=== PATIENT | female | born 1930 | race Caucasian/White ===

== ENCOUNTER 2017-05-04 14:57 | Emergency (ER) | payer MEDICARE, BC ==
[2017-05-04] MEDS ORDERED: Sodium Chloride 0.9% 10 ML Syringe FLUSH PRN (15:21)
[2017-05-04] MEDS ORDERED: Sodium Chloride 0.9% 2.5 ML Syringe FLUSH PRN (15:21)
--- NOTE | 2017-05-04 15:27 | EDM.PDOC ---
ED HPI GENERAL MEDICAL PROBLEM - General Chief Complaint: Chest Pain Stated Complaint: PAIN IN RIBS UNDER BREAST Time Seen by Provider: 05/04/17 15:22 Source of Information: Reports: Patient History Limitations: Reports: No Limitations - History of Present Illness INITIAL COMMENTS - FREE TEXT/NARRATIVE: HISTORY AND PHYSICAL: []86-year-old female presenting with "rib pain" History of Present Illness: []Patient states pain is coming gone for the last 2 weeks generally is there when she lays down. Denies any injury occurring History of appendectomy, coronary artery stent placement, hypertension Review of systems: As per history of present illness and below otherwise all systems reviewed and negative. Past medical history: As per history of present illness and as reviewed below otherwise noncontributory. Surgical history: As per history of present illness and as reviewed below otherwise noncontributory. Social history: No reported history of drug or alcohol abuse. Family history: As per history of present illness and as reviewed below otherwise noncontributory. Physical exam: Alert and oriented female, answering questions in full sentences without shortness of breath. Nontoxic in appearance HEENT: Atraumatic, normocehpalic, pupils reactive, negative for conjunctival pallor or scleral icterus, mucous membranes moist, throat clear, neck supple, nontender, trachea midline. Lungs: Clear to auscultation, breath sounds equal bilaterally, chest non tender. Heart: S1S2, regular, negative for clicks, rubs, or JVD. EKG Abdomen: Soft, nondistended, tender to mid epigastric rebound and no guarding. Negative for masses or hepatossplenmegaly. Negative for costovertebral tenderness. Pelvis: Stable nontender. Genitourinary: Deferred. Rectal: Deferred Extremities: Atraumatic, negative for cords or calf pain. Neurovascular unremarkable. Neuro: Awake, alert, oriented. Cranial nerves II through XII unremarkable. Cerebellum unremarkable. Motor and sensory unremarkable throughout. Exam nonfocal. Discussed test results with the patient and her daughter. Patient's pain has resolved since she obtained a GI cocktail. Diagnostics: [EKG chest x-ray CBC CMP troponin] Therapeutics: [Cocktail] Impression: []Epigastric pain Plan: [Discharged home Nexium 20 mg daily] Gaviscon 4 times a day as needed for the epigastric pain Follow-up with your primary care provider There was a small nodule that was calcified on your left lower lung this needs to be followed up on with your primary care provider Definitive disposition and diagnosis as appropriate pending reevaluation and review of above. Left ribs Pain Score (Numeric/FACES): 5 - Related Data Allergies Allergy/AdvReac Type Severity Reaction Status Date / Time Sulfa (Sulfonamide Allergy Redness Verified 05/04/17 15:11 Antibiotics) Home Meds: Home Meds Clopidogrel [Plavix] 1 tab PO DAILY 07/22/14 [History] Folic Acid 1 mg PO DAILY 07/22/14 [History] Rosuvastatin Calcium [Crestor] 40 mg PO DAILY 07/22/14 [History] Sertraline HCl [Zoloft] 100 mg PO DAILY 07/22/14 [History] amLODIPine [Norvasc] 2.5 mg PO BEDTIME 07/22/14 [History] Triamterene/Hydrochlorothiazid [Triamterene-HCTZ 75-50 MG] 1 tab PO DAILY [History] Lutein/Minerals/Vit A,C & E [Ocuvite] 1 tab PO DAILY 01/03/15 [History] Aspirin 81 mg PO DAILY 05/04/17 [History] Brimonidine [Alphagan 0.2% Ophth Soln] 05/04/17 [History] Ca Carbonate/Vitamin D3/Vit K [Citracal Soft Chew] 05/04/17 [History] Cholecalciferol (Vitamin D3) [Vitamin D] 05/04/17 [History] Esomeprazole Magnesium [Nexium] 20 mg PO DAILY #20 capsule. 05/04/17 [Rx] Jhonny Red 05/04/17 [History] Multivit-Min/FA/Lycopene/Lut [Centrum Silver Tablet] 1 tab PO DAILY 05/04/17 [ History] Past Medical History Other HEENT History: Difficulty hearing, Bilateral ptosis Cardiovascular History: Reports: High Cholesterol, Hypertension Other Respiratory History: 20 yr history smoking, "Quit many years ago" Genitourinary History: Reports: Urinary Incontinence [employer] History: Reports: Other Musculoskeletal History: Hx: reduction Right wrist fracture Other Dermatologic History: Excision basal cell cancer to neck, Current like sun rash to neck. cancer spot removed from forhead - Past Surgical History Other Cardiovascular Surgeries/Procedures: Stent placed Left Leg, Dr Vargas - [facility] Surgical History: Reports: Appendectomy Social & Family History - Family History Neurological: Reports: CVA - Tobacco Use Smoking Status *Q: Never Smoker Years of Tobacco use: 20 Used Tobacco, but Quit: Yes - Caffeine Use Caffeine Use: Reports: Coffee - Alcohol Use Days Per Week of Alcohol Use: 0 Number of Drinks Per Day: 0 Total Drinks Per Week: 0 - Recreational Drug Use Recreational Drug Use: No Drug Use in Last 12 Months: No ED ROS GENERAL - Review of Systems Review Of Systems: ROS reveals no pertinent complaints other than HPI. ED EXAM, GENERAL - Physical Exam Exam: See Below (See dictation) EKG INTERPRETATION EKG Date: 05/04/17 Rhythm: NSR Course - Vital Signs Last Recorded V/S: Last Vital Signs Temp 36.8 C 05/04/17 15:08 Pulse 72 05/04/17 16:20 Resp 18 05/04/17 16:20 BP 145/68 H 05/04/17 16:20 Pulse Ox 98 05/04/17 16:20 - Orders/Labs/Meds Orders: Active Orders 24 hr Category Date Time Status EKG Documentation Completion [RC] STAT Care 05/04/17 15:17 Active Labs: Laboratory Tests 05/04/17 05/04/17 05/04/17 Range/Units 15:30 15:30 15:30 WBC 8.01 (4.0-11.0) K/uL RBC 4.34 (4.30-5.90) M/uL Hgb 13.9 (12.0-16.0) g/dL Hct 41.3 (36.0-46.0) % MCV 95.2 (80.0-98.0) fL MCH 32.0 (27.0-32.0) pg MCHC 33.7 (31.0-37.0) g/dL RDW Std Deviation 50.5 (28.0-62.0) fl RDW Coeff of Delta 15 (11.0-15.0) % Plt Count 272 (150-400) K/uL MPV 10.70 (7.40-12.00) fL Neut % (Auto) 50.9 (48.0-80.0) % Lymph % (Auto) 35.6 (16.0-40.0) % Alcorn % (Auto) 11.1 (0.0-15.0) % Eos % (Auto) 1.9 (0.0-7.0) % Baso % (Auto) 0.5 (0.0-1.5) % Neut # (Auto) 4.1 (1.4-5.7) K/uL Lymph # (Auto) 2.9 H (0.6-2.4) K/uL Alcorn # (Auto) 0.9 H (0.0-0.8) K/uL Eos # (Auto) 0.2 (0.0-0.7) K/uL Baso # (Auto) 0.0 (0.0-0.1) K/uL Nucleated RBC % 0.0 /100WBC Nucleated RBCs # 0 K/uL Sodium 141 (136-146) mmol/L Potassium 3.6 (3.5-5.1) mmol/L Chloride 104 (98-110) mmol/L Carbon Dioxide 26 (21-31) mmol/L BUN 29 H (6.0-23.0) mg/dL Creatinine 1.0 (0.6-1.5) mg/dL Est Cr Clr Drug Dosing 29.01 mL/min Estimated GFR (MDRD) 52.6 ml/min Glucose 95 (60-110) mg/dL Calcium 9.8 (8.8-10.8) mg/dL Total Bilirubin 0.4 (0.1-1.5) mg/dL AST 34 (5-40) IU/L ALT 30 (8-54) IU/L Alkaline Phosphatase 60 (40-150) Troponin I < 0.10 (0.0-0.29) NG/ML Total Protein 7.0 (6.0-8.0) g/dL Albumin 3.8 (3.4-4.8) g/dL Globulin 3.2 (2.0-3.5) g/dL Albumin/Globulin Ratio 1.2 L (1.3-2.8) Meds: Medications Discontinued Medications Generic Name Dose Route Start Last Admin Trade Name Freq PRN Reason Stop Dose Admin Al Hydroxide/Mg Hydroxide 15 0 ml 05/04/17 16:11 05/04/17 16:16 ml/ Metoclopramide HCl 5 mg/ PO 05/04/17 16:12 1 each Lidocaine HCl 5 ml ONETIME ONE Administration Sodium Chloride 10 ml 05/04/17 15:21 Saline Flush FLUSH ASDIRECTED PRN Keep Vein Open Sodium Chloride 2.5 ml 05/04/17 15:21 Saline Flush FLUSH ASDIRECTED PRN Keep Vein Open Departure - Departure Time of Disposition: 16:26 Disposition: Home, Self-Care 01 Condition: Good (Epigastric pain) Clinical Impression: Gastroesophageal reflux disease Qualifiers: Esophagitis presence: esophagitis presence not specified Qualified Code(s): K21.9 - Gastro-esophageal reflux disease without esophagitis - Discharge Information Prescriptions: Esomeprazole Magnesium [Nexium] 20 mg PO DAILY #20 capsule. Referrals: Linda Romero DO [Primary Care Provider] - Forms: ED Department Discharge Additional Instructions: The following information is given to patients seen in the emergency department who are being discharged to home. This information is to outline your options for follow-up care. We provide all patients seen in our emergency department with a follow-up referral. The need for follow-up, as well as the timing and circumstances, are variable depending upon the specifics of your emergency department visit. If you don't have a primary care physician on staff, we will provide you with a referral. We always advise you to contact your personal physician following an emergency department visit to inform them of the circumstance of the visit and for follow-up with them and/or the need for any referrals to a consulting specialist. The emergency department will also refer you to a specialist when appropriate. This referral assures that you have the opportunity for followup care with a specialist. All of these measure are taken in an effort to provide you with optimal care, which includes your followup. Under all circumstances we always encourage you to contact your private physician who remains a resource for coordinating your care. When calling for followup care, please make the office aware that this follow-up is from your recent emergency room visit. If for any reason you are refused follow-up, please contact the [facility] emergency department at and asked to speak to the emergency department charge nurse. Gaviscon 1 tablespoon up to 4 times daily for your epigastric pain There is a nodule calcified in left lower lung you need to follow-up with your primary care provider to keep an eye on this If you develop a rash across her abdomen please be seen immediately
--- NOTE | 2017-05-04 16:08 | CR ---
EXAMINATION: Two-view chest (PA and Lateral views). HISTORY: Shortness of breath. FINDINGS: The trachea is midline. The cardiomediastinal silhouette is within normal limits. No pulmonary infilt rates, effusions or pneumothorax. There is a vague 1.3 cm nodular area projecting over the mid left c hest, and the lateral images projects over the chest wall and less likely a pleural-based calcificati on. Osseous structures appear unremarkable. IMPRESSION: 1. No acute cardiopulmonary process. 2. 1.2 cm left pleural-based calcification.
[2017-05-04] MEDS ORDERED: Alum Hydrox/Mag Hydrox/Simeth 15 ML, Metoclopramide 5 MG, Lidocaine 2% 5 ML PO ONE ×3 (16:11)
[2017-05-04 16:21] VITALS: BP 145/68
== END 2017-05-04 16:35 | disposition home or self-care (01) ==
LOC: MW.ED 14:57
DX: K21.9 Gastro-esophageal reflux disease without esophagitis (principal); E78.00 Pure hypercholesterolemia, unspecified; I10 Essential (primary) hypertension; Z79.899 Other long term (current) drug therapy; Z79.82 Long term (current) use of aspirin; Z88.2 Allergy status to sulfonamides; Z87.891 Personal history of nicotine dependence
CPT/HCPCS: 36415; 71020; 80053; 84484; 85025; 93005; 99285; A9270; 99283